=== PATIENT | female | born 1970 | race Caucasian/White ===

== ENCOUNTER 2018-11-24 18:32 | Emergency (ER) | payer BC, OTHER ==
[~2018-11-24] VITALS: Ht 162.6 cm; Wt 72.6 kg
[~2018-11-24 18:32] MED LIST: BENTYL 20 MG TA20 M1 PO; BUSPAR30 MG PO; LEVOTHYROXIN0.075 MG PO; NORTRIPTYLINE H50 MG PO; PHENERGAN 25 MG25 M1 PO; TRAZODONE HCL100 MG PO
[2018-11-24 18:40] VITALS: BP 112/73
[2018-11-24] MEDS ORDERED: ALEVE220 MG PO (19:12)
[2018-11-24] MEDS ORDERED: NORCO 5-325 TA1 EAC1 PO (19:12)
[2018-11-24] MEDS ORDERED: NORFLEX100 MG PO (19:12)
== END 2018-11-24 19:35 | disposition home or self-care (01) ==
LOC: ER 18:32
DX: S13.4XXA Sprain of ligaments of cervical spine, initial encounter (principal); V89.2XXA Person injured in unspecified motor-vehicle accident, traffic, initial encounter; Y93.89 Activity, other specified; Y92.89 Other specified places as the place of occurrence of the external cause; Y99.8 Other external cause status; F17.210 Nicotine dependence, cigarettes, uncomplicated